=== PATIENT | male | born 1975 | race Caucasian/White ===

== ENCOUNTER 2017-08-14 18:07 | Emergency (ER) | payer MEDICAID ==
[~2017-08-14 18:07] MED LIST: AMLO5TAB2 PO; HYDR25TA4 PO; SIMV10TA6 PO
--- NOTE | 2017-08-14 18:21 | NUR ---
PT DECIDED NOT TO BE SEEN. REFUSED TO BE TRIAGED
== END 2017-08-14 18:22 | disposition left against medical advice (07) ==
LOC: ER 18:08
DX: Z53.21 Procedure and treatment not carried out due to patient leaving prior to being seen by health care provider (principal)

== ENCOUNTER 2017-08-18 17:32 | Inpatient (IN) | payer MEDICAID ==
[~2017-08-18] VITALS: Ht 172.7 cm; Wt 112.9 kg
[2017-08-18] VITALS (12 sets, daily range): BP systolic 136–165; BP diastolic 31–100
[2017-08-18] MEDS ORDERED: methylPREDNISolone SOD SUCC 125 MG/2ML VIAL ONE (17:36)
[2017-08-18] MEDS ORDERED: ALBUTEROL FS 2.5 MG/3 ML VIAL.NEB ONE (17:40)
[2017-08-18] MEDS ORDERED: IPRATROPIUM NEB FS 0.5 MG/2.5 ML AMPUL.NEB ONE (17:40)
--- NOTE | 2017-08-18 17:42 | NUR ---
AAOX3, BIBRA 102 FROM HOME C/O SOB, BREATHING TREATMENT X 1 IN THE FIELD, FEBRILE 102.8 ORAL TEMP, TACHYPNEIC, HOT TO TOUCH, GENERALIZED MALAISE. PLACED ON THE MONITOR. STARTED IVHL RAC 18G, BLOOD DRAWN SENT TO THE LAB. DR LAZO AT FOR EVAL.
[2017-08-18] MEDS ORDERED: IBUPROFEN 600 MG TABLET PO ONE ×2 (17:50→18:00)
[2017-08-18] MEDS ORDERED: ACETAMINOPHEN ES 500 MG TABLET ONE (17:50)
[2017-08-18] MEDS ORDERED: OSELTAMIVIR PHOSPHATE 75 MG CAPSULE ONE (17:50)
[2017-08-18 17:54] LABS: BASOPHILS # (AUTO) 0.2 /CMM (0.0-0.2); EOSINOPHILS # (AUTO) 0.1 /CMM (0.0-0.7); EOSINOPHILS % (AUTO) 0.7 % (0.0-6.0); HEMATOCRIT 39 % (39-51); HEMOGLOBIN 13.5 g/dL (13.5-17.5); LYMPHOCYTES # (AUTO) 0.8 /CMM (0.8-4.8); LYMPHOCYTES % (AUTO) 8.4 % (20.0-44.0); MEAN CORPUSCULAR HEMOGLOBIN 30 PG (26.0-33.0); MEAN CORPUSCULAR HGB CONC 34 g/dl (31.0-36.0); MEAN CORPUSCULAR VOLUME 86 fL (80-96); MONOCYTES # (AUTO) 0.5 /CMM (0.1-1.30); MONOCYTES % (AUTO) 5.2 % (2.0-12.0); NEUTROPHILS # (AUTO) 7.9 /CMM (1.8-8.9); NEUTROPHILS % (AUTO) 83.7 % (43.0-81.0); PLATELET COUNT (AUTO) 135 /CMM (150-450); RDW COEFFICIENT OF VARIATION 12.6 (11.5-15.0); RED BLOOD CELL COUNT(AUTO) 4.57 MIL/uL (4.5-6.0); WHITE BLOOD COUNT (AUTO) 9.5 K/uL (4.3-11.0)
[2017-08-18] MEDS ORDERED: ACETAMINOPHEN ES 500 MG TABLET PO ONE (18:00)
[2017-08-18] MEDS ORDERED: IV NS 0.9% 1,000 ML BAG IV ONE (18:00)
[2017-08-18] MEDS ORDERED: DEXAMETHASONE SOD PHOSPHATE 10 MG/ML VIAL IV ONE (18:00)
[2017-08-18] MEDS ORDERED: OSELTAMIVIR PHOSPHATE 75 MG CAPSULE PO ONE (18:00)
[2017-08-18] MEDS ORDERED: IPRATROPIUM NEB FS 0.5 MG/2.5 ML AMPUL.NEB NEB ONE (18:00)
[2017-08-18] MEDS ORDERED: ALBUTEROL FS 2.5 MG/3 ML VIAL.NEB CONTNEB ONE (18:00)
--- NOTE | 2017-08-18 18:02 | NUR ---
XRAY IN PROGRESS AT BS
[2017-08-18] MEDS ORDERED: ATOR40TA PO (18:05)
[2017-08-18] MEDS ORDERED: AMLO10TA2 PO (18:05)
[2017-08-18] MEDS ORDERED: GLIM4TAB2 PO (18:05)
[2017-08-18] MEDS ORDERED: LOSA100T15 PO (18:05)
[2017-08-18] MEDS ORDERED: CLOP75TA15 PO (18:05)
[2017-08-18] MEDS ORDERED: ASPI-1169 PO (18:05)
[2017-08-18] MEDS ORDERED: IBUP-1957 PO (18:05)
[2017-08-18] MEDS ORDERED: METF500T4 PO (18:05)
[2017-08-18 18:09] LABS: CALCIUM, SERUM 8.9 mg/dL (8.5-10.1); CARBON DIOXIDE 27 mmol/L (21-32); CHLORIDE 101 mmol/L (98-107); CREATININE 1.3 mg/dL (0.6-1.3); GLUCOSE 233 mg/dL (74-106); POTASSIUM 4.1 mmol/L (3.5-5.1); SODIUM SERUM 136 mmol/L (136-145); UREA NITROGEN, BLOOD 21 mg/dL (7-18)
[2017-08-18 18:11] LABS: INR 1.07 (0.85-1.15)
[2017-08-18 18:17] LABS: TROPONIN I 0.018 ng/mL (0.00-0.056)
[2017-08-18 18:21] LABS: ALANINE AMINOTRANSFERASE 38 U/L (12-78); ALBUMIN 3.4 g/dL (3.4-5.0); ALKALINE PHOSPHATASE 76 U/L (46-116); ASPARTATE AMINOTRANSFERASE 34 U/L (15-37); B-TYPE NATRIURETIC PEPTIDE 1281 PG/ML (0-125); BILIRUBIN,DIRECT 0.1 mg/dL (0.0-0.2); BILIRUBIN,TOTAL 0.6 mg/dL (0.2-1.0); TOTAL PROTEIN, SERUM 7.6 g/dL (6.4-8.2)
--- NOTE | 2017-08-18 18:47 | NUR ---
DR LAZO WILL NOT FOLLOW THE 30ML/KG FLUID INFUSION FOR SEPSIS PROTOCOL D/T ELEVATED BNP AND PULMONARY VASCULAR CONGESTION.
--- NOTE | 2017-08-18 18:51 | NUR ---
[facility] PAGED, MARIAH GRAHAM BEAUTY OPERATOR APPRENTICE
[2017-08-18 18:52] LABS: BAND % (MANUAL) 6 % (0.0-5.0); LYMPHOCYTES % (MANUAL) 16 % (16-48); MONOCYTES % (MANUAL) 4 % (0-11.0); NEUTROPHILS % (MANUAL) 74 (42-76)
--- NOTE | 2017-08-18 18:59 | NUR ---
CALLED RT FOR BIPAP
[2017-08-18] MEDS ORDERED: PIPERACILLIN /TAZOBACTAM 3.375 G in IV D5W 50 ML IV ONE (19:00)
[2017-08-18] MEDS ORDERED: VANCOMYCIN 1 GM in IV D5W 250 ML IV ONE (19:00)
--- NOTE | 2017-08-18 19:00 | NUR ---
CALLED NURSING SUP. TO UPGRADE TO ICU
[2017-08-18] MEDS ORDERED: METO25TA3 PO (19:03)
--- NOTE | 2017-08-18 19:05 | NUR ---
[facility] PAGED, DOUG DAVIS COMPUTATIONAL THEORY SCIENTIST
--- NOTE | 2017-08-18 19:10 | NUR ---
PATIENT PLACED ON CPAP.
--- NOTE | 2017-08-18 19:20 | NUR ---
REPORT GIVEN TO ULI LUDWIG FOR GOSIA.
--- NOTE | 2017-08-18 19:27 | NUR ---
PT REC'D ON 3LNC. SOB NOTED. PT PLACED ON CPAP PER DR VIOLET DAVILA. BIPAP PLUGGED INTO RED OUTLET. ALARMS ARE SET AND AUDIBLE. AMBU BAG BEDSIDE. WILL CONTINUE TO MONITOR Addendum: 08/18/17 at 1928 by VU ANN RT Amended: Links added.
[2017-08-18] MEDS ORDERED: ASPIRIN 325 MG TABLET PO ONE (19:30)
[2017-08-18] MEDS ORDERED: methylPREDNISolone SOD SUCC 125 MG/2ML VIAL IV ONE (19:30)
[2017-08-18] MEDS ORDERED: NITROGLYCERIN PACKET 1 GM PACKET TOP ONE (19:30)
[2017-08-18] MEDS ORDERED: NITROGLYCERIN PACKET 1 GM PACKET ONE (19:35)
[2017-08-18] MEDS ORDERED: ASPIRIN 325 MG TABLET ONE (19:35)
--- NOTE | 2017-08-18 19:38 | NUR ---
ICU 254
--- NOTE | 2017-08-18 19:48 | NUR ---
REPORT GIVEN TO JOE MCNALLY FOR ADMISSION AND GOSIA.
[2017-08-18 19:51] LABS: ABG BASE EXCESS -0.5 mmol/L; ABG OXYGEN SATURATION 94.6 % (92.0-98.5); ABG PCO2 36.7 mmHg (35.0-45.0); ABG PH 7.424 (7.350-7.450); ABG PO2 75.6 mmHg (75.0-100.0); AaDO2 95.2 mmHg; COHb 0.7 % (0.5-1.5); MetHb 0.9 % (0.0-1.5); O2Hb 93.1 % (94.0-97.0); SITE, ABG Left Radial; VENT MODE, BG CPAP 8 30%
[2017-08-18 19:52] LABS: APPEARANCE,URINE SL CLOUDY (CLEAR); BILIRUBIN,URINE NEGATIVE (NEGATIVE); BLOOD, URINE NEGATIVE Ery/uL (NEGATIVE); COLOR,URINE YELLOW (YELLOW); KETONES,URINE NEGATIVE (NEGATIVE); LEUKOCYTE ESTERASE ,URINE NEGATIVE (NEGATIVE); NITRITE, URINE NEGATIVE (NEGATIVE); PH,URINE 5.5 (5.0-8.0); PROTEIN,URINE 1+ mg/dl (NEGATIVE); UGLUCOSE NEGATIVE (NEGATIVE); UROBILINOGEN,URINE 0.2 EU/dL (0.2)
[2017-08-18 19:59] LABS: BACTERIA,URINE Rare /HPF (None Seen); RBC,URINE 0-2 /HPF (0-2); SQUAMOUS EPITHELIAL CELL,UR Rare /HPF (None Seen)
[2017-08-18] MEDS ORDERED: LEVALBUTEROL HCL NEB 1.25 MG/0.5 ML VIAL.NEB NEB PRN (20:00)
[2017-08-18] MEDS ORDERED: ACETAMINOPHEN 325 MG TABLET PO PRN (20:00)
[2017-08-18] MEDS ORDERED: CLONIDINE HCL 0.1 MG TABLET PO PRN (20:00)
[2017-08-18] MEDS ORDERED: MORPHINE SULFATE INJ 4 MG/ML DISP.SYRIN IV PRN (20:00)
[2017-08-18] MEDS ORDERED: ONDANSETRON HCL/PF 4 MG/2 ML VIAL IVP PRN (20:00)
[2017-08-18] MEDS ORDERED: IPRATROPIUM NEB FS 0.5 MG/2.5 ML AMPUL.NEB NEB PRN (20:00)
[2017-08-18] MEDS ORDERED: DEXTROSE 50%-WATER 50 ML DISP.SYRIN IV PRN (20:30)
--- NOTE | 2017-08-18 20:32 | NUR ---
TRANSFERRED PATIENT TO ICU 254 VIA ALS PROTOCOL, NO INCIDENT NOTED. JOE MCNALLY AT BEDSIDE.
[2017-08-18] MEDS ORDERED: FEE PK DOSING 1 MIN EA MC ONE (20:44)
[2017-08-18] MEDS ORDERED: ALBUTEROL FS 2.5 MG/0.5 ML VIAL.NEB NEB PRN (21:00)
[2017-08-18] MEDS ORDERED: METOPROLOL TARTRATE INJ 5 MG/5 ML AMPUL IV ONE (21:00)
[2017-08-18] MEDS ORDERED: OSELTAMIVIR PHOSPHATE 75 MG CAPSULE PO SCH (21:00)
[2017-08-18] MEDS ORDERED: FUROSEMIDE 20 MG/2 ML VIAL IV ONE (21:00)
[2017-08-18] MEDS: INSULIN REGULAR, HUMAN 100 UNIT/ML 3 ML VIAL SQ PRN (21:14)
[2017-08-18] MEDS ORDERED: BLOOD SUGAR DIAGNOSTIC 1 EACH STRIP IN SCH (22:00)
--- NOTE | 2017-08-18 22:04 | NUR ---
received pt from ER, s/p CHF, SOB, ResF, a/o x4, follows commands, ST, on CPAP initially, now on NC at 4L, sat well, no SOB, lungs partially congested, no edema, tolerates diet, had one BM, urinates in urinal, v/s stable, no pain, pt turns and repositions by himself, family at the bedside.
[2017-08-18] MEDS: PIPERACILLIN /TAZOBACTAM 3.375 G in IV D5W 50 ML IV SCH (23:10)
[2017-08-19] VITALS (24 sets, daily range): BP systolic 128–171; BP diastolic 75–110
[2017-08-19] MEDS ORDERED: NITROGLYCERIN 0.4 MG/TAB BOTTLE SL PRN
--- NOTE | 2017-08-19 | NUR ---
pt is resting in the bed, alert, on an off CPAP, sat well, SR, v/s stable, no chest pain verbalized.
[2017-08-19] MEDS: methylPREDNISolone SOD SUCC 40 MG/ML VIAL IV SCH ×3 (01:34→18:04)
--- NOTE | 2017-08-19 04:09 | NUR ---
pt is resting in the bed, alert, SR, on and off CPAP, sat well, v/s stable, no pain, pt cleaned and changed.
[2017-08-19 05:12] LABS: BASOPHILS % (AUTO) 0.1 % (0.0-2.0); HEMATOCRIT 37 % (39-51); HEMOGLOBIN 12.7 g/dL (13.5-17.5); LYMPHOCYTES # (AUTO) 0.4 /CMM (0.8-4.8); LYMPHOCYTES % (AUTO) 4.4 % (20.0-44.0); MEAN CORPUSCULAR HEMOGLOBIN 30 PG (26.0-33.0); MEAN CORPUSCULAR HGB CONC 34 g/dl (31.0-36.0); MEAN CORPUSCULAR VOLUME 88 fL (80-96); MONOCYTES # (AUTO) 0.1 /CMM (0.1-1.30); MONOCYTES % (AUTO) 0.8 % (2.0-12.0); NEUTROPHILS # (AUTO) 7.7 /CMM (1.8-8.9); NEUTROPHILS % (AUTO) 94.7 % (43.0-81.0); PLATELET COUNT (AUTO) 122 /CMM (150-450); RDW COEFFICIENT OF VARIATION 13.4 (11.5-15.0); RED BLOOD CELL COUNT(AUTO) 4.24 MIL/uL (4.5-6.0); WHITE BLOOD COUNT (AUTO) 8.1 K/uL (4.3-11.0)
[2017-08-19] MEDS: PIPERACILLIN /TAZOBACTAM 3.375 G in IV D5W 50 ML IV SCH ×2 (05:16→13:11)
[2017-08-19 05:20] LABS: ALBUMIN 3.2 g/dL (3.4-5.0); BILIRUBIN,TOTAL 0.5 mg/dL (0.2-1.0); CALCIUM, SERUM 8.4 mg/dL (8.5-10.1); CREATININE 1.4 mg/dL (0.6-1.3); MAGNESIUM 2.1 mg/dL (1.8-2.4); PHOSPHORUS 4.1 mg/dL (2.5-4.9); POTASSIUM 3.8 mmol/L (3.5-5.1); TOTAL PROTEIN, SERUM 7.2 g/dL (6.4-8.2)
--- NOTE | 2017-08-19 05:30 | NUR ---
pt BS 431, 10units of regular insulin given Dr Manpreet Coy notified, order to changed sliding scale to moderate received and carried out.
[2017-08-19 05:38] LABS: THYROID STIMULATING HORMONE 0.521 uIU/mL (0.358-3.74)
[2017-08-19] MEDS: INSULIN REGULAR, HUMAN 100 UNIT/ML 3 ML VIAL SQ PRN ×4 (05:42→21:20)
[2017-08-19] MEDS ORDERED: DEXTROSE 50%-WATER 50 ML DISP.SYRIN IV PRN (06:00)
[2017-08-19] MEDS ORDERED: VANCOMYCIN 1.25 GM in IV D5W 500 ML IV SCH (06:00)
--- NOTE | 2017-08-19 07:15 | NUR ---
RN INITIAL NOTE PATIENT RECEIVED IN BED RESTING. AWAKE, ALERT AND ORIENTED. ABLE TO MAKE NEEDS KNOWN. RESPIRATIONS ARE EVEN AND UNLABORED. NO S/S OF RESPIRATORY DISTRESS OR SOB. SATING WELL ON 3L NASAL CANULA. SINUS TACH ON TELE MONITOR. SKIN IS WARM AND DRY TO TOUCH. IV SITE FLUSHED, PATENT. BED IN LOCKED LOW POSITION, TWO SIDE RAILS UP. CALL LIGHT AND BELONGINGS WITHIN EASY REACH. WILL CONTINUE TO MONITOR.
[2017-08-19] MEDS: BLOOD SUGAR DIAGNOSTIC 1 EACH STRIP VI SCH ×4 (07:48→21:16)
[2017-08-19] MEDS: PANTOPRAZOLE 40 MG VIAL IV SCH (08:52)
[2017-08-19] MEDS: OSELTAMIVIR PHOSPHATE 75 MG CAPSULE PO SCH ×2 (08:53→21:10)
[2017-08-19] MEDS: LOSARTAN POTASSIUM 50 MG TABLET PO SCH (08:53)
[2017-08-19] MEDS: ASPIRIN 81 MG TAB.CHEW PO SCH (08:54)
[2017-08-19] MEDS: ATORVASTATIN 40 MG TABLET PO SCH (08:54)
[2017-08-19] MEDS: METOPROLOL SUCCINATE 25 MG TAB.SR.24H PO SCH (08:54)
[2017-08-19] MEDS: METFORMIN 500 MG TABLET PO SCH ×2 (08:54→18:00)
[2017-08-19] MEDS: GLIMEPIRIDE 4 MG TABLET PO SCH (08:55)
[2017-08-19] MEDS: NICOTINE PATCH (14MG) 14 MG PATCH.TD24 TD SCH (08:55)
[2017-08-19] MEDS: AMLODIPINE BESYLATE 10 MG TABLET PO SCH (08:55)
[2017-08-19] MEDS: CLOPIDOGREL BISULFATE 75 MG TABLET PO SCH (08:55)
[2017-08-19] MEDS: *INSULIN REGULAR(HUMULIN R)HUM 100 UNIT/ML VIAL SQ PRN (08:58)
--- NOTE | 2017-08-19 12:00 | NUR ---
RN NOTE TRANSFER PATIENT FROM ICU TO MANUEL FLOOR. I WILL CONTINUE TO BE PATIENTS RN.
[2017-08-19] MEDS: MENTHOL/CETYLPYRD (CEPACOL) 1 LOZ LOZENGE PO PRN (16:44)
[2017-08-19] MEDS ORDERED: LEVOFLOXACIN 750 MG /D5W 150ML 750 MG in PREMIX 1 EA IV SCH (19:00)
--- NOTE | 2017-08-19 19:14 | NUR ---
RN NOTES RECEIVED PATIENT AWAKE IN BED WATCHING TV WITH NO DISTRESS NOTED, BREATHING EVEN AND UNLABORED. ON ROOM AIR TOLERATING WELL. NO COMPLAINT OF PAIN OF THIS TIME. ALERT AND ORIENTED. VERBALLY ABLE TO COMMUNICATE NEEDS. WILL CONTINUE TO MONITOR.
[2017-08-20] VITALS: BP 156/96
[2017-08-20] MEDS: methylPREDNISolone SOD SUCC 40 MG/ML VIAL IV SCH ×2 (02:12→09:46)
[2017-08-20] MEDS: hydrALAZINE HCL IV 20 MG VIAL IV PRN ×2 (03:46→10:03)
[2017-08-20 04:00] VITALS: BP 162/97
[2017-08-20] MEDS: MENTHOL/CETYLPYRD (CEPACOL) 1 LOZ LOZENGE PO PRN (04:34)
--- NOTE | 2017-08-20 06:10 | NUR ---
RN CLOSING NOTES PATIENT IN BED SLEEPING. WITH EPISODES OF COUGHING, LOZENGES GIVEN AND ADMINISTERED BREATHING TREATMENT, WITH RELIEF. NOTED AT 4AM, SBP 162, HYDRALAZINE 10MG GIVEN. SBP WENT DOWN TO 142. PATIENT WANTS TO GO HOME, POSITIVE FOR INFLUENZA A. WILL ENDORSE TO AM SHIFT FOR CONTINUITY OF CARE.
[2017-08-20] MEDS: BLOOD SUGAR DIAGNOSTIC 1 EACH STRIP VI SCH ×2 (06:52→12:04)
[2017-08-20] MEDS: *INSULIN REGULAR(HUMULIN R)HUM 100 UNIT/ML VIAL SQ PRN (06:55)
[2017-08-20 07:33] LABS: BASOPHILS % (AUTO) 0.1 % (0.0-2.0); HEMATOCRIT 41 % (39-51); HEMOGLOBIN 13.8 g/dL (13.5-17.5); LYMPHOCYTES # (AUTO) 0.7 /CMM (0.8-4.8); LYMPHOCYTES % (AUTO) 4.8 % (20.0-44.0); MEAN CORPUSCULAR HEMOGLOBIN 30 PG (26.0-33.0); MEAN CORPUSCULAR HGB CONC 34 g/dl (31.0-36.0); MEAN CORPUSCULAR VOLUME 89 fL (80-96); MONOCYTES # (AUTO) 0.3 /CMM (0.1-1.30); NEUTROPHILS # (AUTO) 13.1 /CMM (1.8-8.9); NEUTROPHILS % (AUTO) 93.1 % (43.0-81.0); PLATELET COUNT (AUTO) 135 /CMM (150-450); RDW COEFFICIENT OF VARIATION 13.1 (11.5-15.0); WHITE BLOOD COUNT (AUTO) 14.1 K/uL (4.3-11.0)
[2017-08-20 07:41] LABS: CALCIUM, SERUM 8.5 mg/dL (8.5-10.1); CREATININE 1.1 mg/dL (0.6-1.3); POTASSIUM 3.5 mmol/L (3.5-5.1)
[2017-08-20 08:00] VITALS: BP 178/117
[2017-08-20] MEDS: PANTOPRAZOLE 40 MG VIAL IV SCH (08:34)
[2017-08-20] MEDS: METFORMIN 500 MG TABLET PO SCH (08:35)
[2017-08-20] MEDS: CLOPIDOGREL BISULFATE 75 MG TABLET PO SCH (08:35)
[2017-08-20] MEDS: LOSARTAN POTASSIUM 50 MG TABLET PO SCH (08:36)
[2017-08-20] MEDS: OSELTAMIVIR PHOSPHATE 75 MG CAPSULE PO SCH (08:36)
[2017-08-20] MEDS: ASPIRIN 81 MG TAB.CHEW PO SCH (08:36)
[2017-08-20] MEDS: METOPROLOL SUCCINATE 25 MG TAB.SR.24H PO SCH (08:36)
[2017-08-20] MEDS: AMLODIPINE BESYLATE 10 MG TABLET PO SCH (08:37)
[2017-08-20] MEDS: GLIMEPIRIDE 4 MG TABLET PO SCH (08:37)
[2017-08-20] MEDS: NICOTINE PATCH (14MG) 14 MG PATCH.TD24 TD SCH (08:37)
[2017-08-20] MEDS: ATORVASTATIN 40 MG TABLET PO SCH (08:37)
[2017-08-20 10:00] VITALS: BP 165/112
[2017-08-20 11:05] VITALS: BP 172/111
[2017-08-20] MEDS: INSULIN REGULAR, HUMAN 100 UNIT/ML 3 ML VIAL SQ PRN (12:09)
[2017-08-20] MEDS ORDERED: hydrALAZINE HCL 50 MG TABLET PO SCH ×2 (13:00)
[2017-08-20 16:00] VITALS: BP 146/99
--- NOTE | 2017-08-20 16:05 | NUR ---
RN NOTE PT LEFT AMA TO HOME WITH VIA PRIVATE CAR, PRESCRIPTIONS AND ALL REQUESTED PAPERWORK PROVIDED TO PT, RISKS AND BENEFITS EXPLAINED, STILL WANTS TO GO HOME. LOG DATA TECHNICIAN MARIAH GRAHAM AWARE. BELONGINGS LIST SIGNED, INSTRUCTIONS PROVIDED TO PT.
[2017-08-20] MEDS ORDERED: methylPREDNISolone SOD SUCC 40 MG/ML VIAL IV SCH (17:00)
[2017-08-21] MEDS ORDERED: METOPROLOL SUCCINATE 50 MG TAB.SR.24H PO SCH (09:00)
== END 2017-08-20 16:09 | disposition left against medical advice (07) | DRG 720 ==
LOC: ER 17:33 → ICU 20:11 → TELE1 08-19 11:40 → MEDSG1 08-20 11:17
PROVIDERS: ADMIT Nurse Practitioner Acute Care; ATTEND Nurse Practitioner Acute Care
DX: A41.9 Sepsis, unspecified organism (principal); I21.A1 Myocardial infarction type 2; J96.00 Acute respiratory failure, unspecified whether with hypoxia or hypercapnia; G92 Toxic encephalopathy; J10.00 Influenza due to other identified influenza virus with unspecified type of pneumonia; I11.0 Hypertensive heart disease with heart failure; D69.6 Thrombocytopenia, unspecified; E87.2 Acidosis; I50.9 Heart failure, unspecified; J18.9 Pneumonia, unspecified organism; R65.20 Severe sepsis without septic shock; F17.210 Nicotine dependence, cigarettes, uncomplicated; E66.01 Morbid (severe) obesity due to excess calories; I25.10 Atherosclerotic heart disease of native coronary artery without angina pectoris; E11.65 Type 2 diabetes mellitus with hyperglycemia; Z98.61 Coronary angioplasty status; Z68.37 Body mass index [BMI] 37.0-37.9, adult; Z71.6 Tobacco abuse counseling; T38.0X5A Adverse effect of glucocorticoids and synthetic analogues, initial encounter; Y92.89 Other specified places as the place of occurrence of the external cause; D72.828 Other elevated white blood cell count; Z79.84 Long term (current) use of oral hypoglycemic drugs
CPT/HCPCS: 36415; 36600; 71045-TC; 80048-TC; 80053-TC; 80061-TC; 80076-TC; 80202-TC; 81000-TC; 82803-TC; 82962-TC; 83605-TC; 83735-TC; 83880; 84100-TC; 84443-TC; 84484-TC; 85025-TC; 85730-TC; 87040-TC; 87081-TC; 87086-TC; 87400; 93307-TC; 94799-TC; 99082-TC; A4216; A4606; C9113; J0360; J1815; J1940; J1956; J2543; J2920; J2930; J3370; J3490; J7050; J7060; Z7610

== ENCOUNTER 2020-01-07 23:21 | Emergency (ER) | payer MEDICAID ==
[~2020-01-07] VITALS: Ht 172.7 cm; Wt 112.0 kg
[~2020-01-07 23:21] MED LIST changes: +AMLO10TA7 PO; -AMLO5TAB2 PO; +ASPI-1169 PO; +ATOR40TA PO; +CLOP75TA15 PO; +GLIM4TAB37 PO; -HYDR25TA4 PO; +IBUP-1957 PO; +LOSA100T31 PO; +METF-440 PO; +METO25TA3 PO; -SIMV10TA6 PO
[2020-01-07 23:27] VITALS: BP 174/104
--- NOTE | 2020-01-07 23:38 | NUR ---
DR APODACA AT BEDSIDE FOR EVAL
--- NOTE | 2020-01-07 23:40 | NUR ---
NOTED W/ HIGH BP UPON TRIAGE. PER PT HE TOOK HIS NIGHT DOSE OF HIS BP MEDS 10 MIN [facility] HE[facility] RN. DR APODACA MADE AWARE.
[2020-01-07] MEDS ORDERED: CEFTRIAXONE 1 G VIAL ONE (23:44)
[2020-01-07] MEDS ORDERED: SULFAMETH/TRIMETH 800/160 MG 1 UDTAB TABLET ONE (23:44)
[2020-01-07] MEDS ORDERED: LIDOCAINE /MPF 1% VIAL 5 ML VIAL ONE (23:44)
--- NOTE | 2020-01-07 23:52 | NUR ---
Patient discharged to home in stable condition. Written and verbal after care instructions given. Patient verbalizes understanding of instruction.pt. ambulatory with a steady gait
[2020-01-08] MEDS ORDERED: SULFAMETH/TRIMETH 800/160 MG 1 UDTAB TABLET PO ONE
[2020-01-08] MEDS ORDERED: CEFTRIAXONE 1 G VIAL IM ONE
== END 2020-01-07 23:55 | disposition home or self-care (01) ==
LOC: ER 23:24
DX: L03.311 Cellulitis of abdominal wall (principal); F17.200 Nicotine dependence, unspecified, uncomplicated; I10 Essential (primary) hypertension; E11.9 Type 2 diabetes mellitus without complications; I25.10 Atherosclerotic heart disease of native coronary artery without angina pectoris; Z98.890 Other specified postprocedural states; Z79.899 Other long term (current) drug therapy; Z79.82 Long term (current) use of aspirin; Z79.84 Long term (current) use of oral hypoglycemic drugs
CPT/HCPCS: 96372; 99283; 99406; J0696; J3490

== ENCOUNTER 2020-05-29 10:37 | Emergency (ER) | payer MEDICAID ==
[~2020-05-29] VITALS: Ht 172.7 cm; Wt 110.7 kg
[~2020-05-29 10:37] MED LIST changes: +AMLO-213 PO; -AMLO10TA7 PO
--- NOTE | 2020-05-29 11:00 | NUR ---
pt bib self c/o COUGH, FEVER AND BODY PAIN SINCE YESTERDAY. VS CHECKED. SEEN BY
--- NOTE | 2020-05-29 11:15 | NUR ---
COVID SWAB DONE SENT TO LAB
--- NOTE | 2020-05-29 11:46 | NUR ---
POSITIVE COVID RESULT.
--- NOTE | 2020-05-29 12:20 | NUR ---
Patient discharged to home in stable condition. Written and verbal after care instructions given. Patient verbalizes understanding of instruction.
[2020-05-29 12:21] VITALS: BP 156/84
== END 2020-05-29 12:22 | disposition home or self-care (01) ==
LOC: ER 10:41
DX: U07.1 COVID-19 (principal); I11.9 Hypertensive heart disease without heart failure; I25.10 Atherosclerotic heart disease of native coronary artery without angina pectoris; E11.9 Type 2 diabetes mellitus without complications; Z79.02 Long term (current) use of antithrombotics/antiplatelets; Z79.84 Long term (current) use of oral hypoglycemic drugs; Z79.899 Other long term (current) drug therapy; Z95.5 Presence of coronary angioplasty implant and graft
CPT/HCPCS: 71045; 87426; 99284; C9803